=== PATIENT | female | born 1945 | race Caucasian/White ===

== ENCOUNTER 2020-07-21 08:51 | Outpatient (CLI) | payer MEDICARE, SELFPAY ==
--- NOTE | ~2020-07-21 | MM_ITS ---
EXAMINATION: MM screening ani BI w raphael HISTORY: Screening mammogram TECHNIQUE: Craniocaudal and mediolateral oblique 3-D tomosynthesis images were obtained and synthetic 2-D images were generated. CAD analysis was submitted and interpreted. COMPARISON: 10/01/2017, 02/14/2016, 10/07/2014 BREAST PARENCHYMAL COMPOSITION: The breasts are heterogeneously dense, which may obscure small masses .0 FINDINGS: Scattered benign-appearing calcifications are present. There is no evidence of suspicious m ass, calcification, or architectural distortion to suggest malignancy in either breast. There has bee n no suspicious interval change. IMPRESSION: 1. No mammographic evidence of malignancy. 2. Recommend routine screening mammography in one year. BI-RADS Category 2: Benign finding(s). Reviewed, dictated and finalized at location A. [employer]UR[employer] ANALYST
--- NOTE | ~2020-07-21 | DEXA_ITS ---
Bone Density Report Name: Kay Eastman Age: 74 Sex: Female Ethnicity: White Date of : 1945 Indication: osteopenia; height loss; Referring Provider: Elver Partida Study: Bone densitometry was performed. Exam Date: July 21, 2020 Accession number: [id number] Bone Density: Region BMD T-score Z-score Classification AP Spine (L1, L2, L3) 0.894 -1.1 1.2 Osteopenia Femoral Neck (Left) 0.609 -2.2 -0.2 Osteopenia Total Hip (Left) 0.707 -1.9 -0.2 Osteopenia Total Hip Bilateral Avg 0.653 -2.4 -0.7 Osteopenia Femoral Neck (Right) 0.531 -2.9 -0.9 Osteoporosis Total Hip (Right) 0.598 -2.8 -1.1 Osteoporosis World Health Organization criteria for BMD impression classify patients as: Normal (T-score at or above -1.0), Osteopenia (T-score between -1.0 and -2.5), or Osteoporosis (T-score at or below -2.5). 10-year Fracture Risk: FRAX not reported because: Some T-score for Spine Total or Hip Total or Femoral Neck at or below -2.5 Previous Exams: Region Exam Age BMD T-score BMD Change BMD Change Date g/cm2 vs Baseline vs Previous AP Spine(L1, L2, L3) 07/21/2020 74 0.894 -1.1 0.040(4.7%)# -0.053(-5.6%)* 10/01/2017 71 0.948 -0.6 0.093(10.9%)# -0.008(-0.8%) 10/07/2014 68 0.956 -0.6 0.101(11.8%)# 0.012(1.2%)# 03/27/2012 66 0.944 -0.7 0.089(10.5%)# -0.041(-4.2%)# 05/29/2009 63 0.985 -0.3 0.131(15.3%)* 0.052(5.6%)* 01/14/2007 61 0.933 -0.8 0.078(9.2%)* 0.078(9.2%)* 07/05/2004 58 0.854 -1.5 Total Hip(Left) 07/21/2020 74 0.707 -1.9 -0.005(-0.7%)# -0.021(-2.9%) 10/01/2017 71 0.727 -1.8 0.016(2.2%)# -0.050(-6.5%)* 10/07/2014 68 0.778 -1.3 0.066(9.3%)# -0.003(-0.4%)# 03/27/2012 66 0.780 -1.3 0.069(9.7%)# 0.030(4.1%)# 05/29/2009 63 0.750 -1.6 0.038(5.4%)* 0.006(0.8%) 01/14/2007 61 0.744 -1.6 0.032(4.6%)* 0.032(4.6%)* 07/05/2004 58 0.712 -1.9 Total Hip(Right) 07/21/2020 74 0.598 -2.8 -0.042(-6.6%)# -0.076(-11.2%) 10/01/2017 71 0.674 -2.2 0.034(5.3%)# 0.020(3.0%) 10/07/2014 68 0.654 -2.4 0.014(2.1%)# 0.000(0.0%)# 03/27/2012 66 0.654 -2.4 0.014(2.1%)# -0.057(-8.0%)# 05/29/2009 63 0.711 -1.9 0.071(11.0%)* 0.048(7.3%)* 01/14/2007 61 0.663 -2.3 0.022(3.5%) 0.022(3.5%) 07/05/2004 58 0.640 -2.5 *Denotes significance at 95% confidence level, LSC for AP Spine = 0.022 g/cm2, LSC for Total Hip = 0.027 g/cm2 Clinical Information Provided by Patient:
--- NOTE | ~2020-07-21 | CT_ITS ---
EXAMINATION: CT lung screening EXAM DATE: 07/21/2020 09:41 INDICATION: Personal history of nicotine dependence. TECHNIQUE: Spiral low dose CT of the chest without contrast. Axial, coronal and sagittal images were reviewed. The dose-length product (DLP) for this examination was 60.57 mGy-cm. The exposure was ta ilored according to patient size (auto mA exposure control), and iterative reconstruction (ASIR) was used as additional dose reduction technique. Comparison is made to prior examination from 02/26/2017. FINDINGS: There is a 4 mm pleural-based right lower lobe nodule on image 71. Biapical opacities cons istent with scarring. Both of these findings are stable compared to 2017 consistent with postinfectio us residua. Small amount of nodularity along the anterior, nondependent wall of the miguel, largest region measur ing about 3 x 5 mm. This was not present on previous examination. Could be endobronchial debris but e ndobronchial malignancy not excludable. There is no mediastinal, hilar or axillary lymphadenopathy. There are no pleural or pericardial eff usions. There is no pneumothorax. Heart normal in size. There is mild coronary arterial calcifi cation, arterial sclerosis. Mild emphysema and hyperinflation. Upper abdomen is unremarkable. The re is thoracic spondylosis without osteoblastic or osteolytic lesions identified. IMPRESSION: Lung-RADS category 4A, suspicious (5-15 % chance of malignancy); recommend bronchoscopy o r followup LDCT in 3 months. Office is presently closed. I left a message for Dr. Elver Partida MD on 07/21/2020 12:06 VOICE OVER ARTIST. I p rovided my direct number, to discuss findings in this case. Reviewed, dictated and finalized at location B. E OVER ARTIST IMPRESSION: Lung-RADS category 4A, suspicious (5-15 % chance of malignancy); re commend bronchoscopy or followup LDCT in 3 months. Office is presently closed. I left a message for Dr. Elver Partida MD on 06/27 12:06 VOICE OVER ARTIST. I provided my direct number, to discuss findings in this mary e.
== END 2020-07-21 08:52 | disposition home or self-care (01) ==
LOC: ANHIMG 08:53
PROVIDERS: Family Provider Internal Medicine; PCP Family Medicine; Visit Provider Family Medicine
DX: Z12.2 Encounter for screening for malignant neoplasm of respiratory organs (principal); Z87.891 Personal history of nicotine dependence; Z78.0 Asymptomatic menopausal state; Z12.31 Encounter for screening mammogram for malignant neoplasm of breast; R91.8 Other nonspecific abnormal finding of lung field; M85.88 Other specified disorders of bone density and structure, other site; M85.852 Other specified disorders of bone density and structure, left thigh; M85.851 Other specified disorders of bone density and structure, right thigh; M81.0 Age-related osteoporosis without current pathological fracture
CPT/HCPCS: 71271; 77063; 77067; 77080

== ENCOUNTER 2021-02-26 09:58 | Outpatient (CLI) | payer MEDICARE, SELFPAY ==
--- NOTE | ~2021-02-26 | CT_ITS ---
EXAMINATION:CT diagnostic chest wo con DATE: 02/26/2021 10:32 INDICATION: Solitary pulmonary nodule. TECHNIQUE: Computed tomography (CT) of the chest was performed without intravenous contrast. Automate d exposure control and iterative reconstruction technique were employed. The dose-length product (DLP ) was 60.57 mGy-cm. COMPARISON: Chest CT 07/21/2020, 02/26/2017 FINDINGS: There is mild scarring at the lung apices. There is mild atelectasis bilaterally. Again see n is a 5 mm nodule in right lower lobe. There are a few other scattered nodules measuring up to 3 mm. There is no abnormal mass in the trachea or bronchi. No pleural effusion. There is an aberrant right subclavian artery. The heart size is normal. There are coronary artery calcifications. No pericardia l effusion. There is moderate thoracic spondylosis. IMPRESSION: 1. Lung-RADS category 2: Benign appearance or behavior. Continue annual screening with noncontrast lo w-dose chest CT in 12 months. Reviewed, dictated and finalized at location A. IMPRESSION: 1. Lung-RADS category 2: Benign appearance or behavior. Continue annual screeni ng with noncontrast low-dose chest CT in 12 months.
== END 2021-02-26 09:59 | disposition home or self-care (01) ==
PROVIDERS: PCP Family Medicine; Visit Provider Internal Medicine Pulmonary Disease
DX: R91.1 Solitary pulmonary nodule (principal)
CPT/HCPCS: 71250

== ENCOUNTER 2022-10-03 09:47 | Outpatient (CLI) | payer MEDICARE, SELFPAY ==
--- NOTE | ~2022-10-03 | CT_ITS ---
EXAMINATION: CT lung screening DATE: 10/03/2022 10:22 INDICATION: Lung cancer screening TECHNIQUE: Computed tomography (CT) of the chest was performed without intravenous contrast. The dose -length product was 59.29 mGy-cm. Automated exposure control and iterative reconstruction technique w ere employed. COMPARISON: CT dated 06/29/2020 FINDINGS: Heart size normal. No significant pleural or pericardial effusion. No thoracic lymphadenopa thy. There is atherosclerosis of the aorta and coronary arteries. The upper abdomen is unremarkable. There is emphysema. Stable apical pleural thickening/scarring. Stable bilateral pulmonary nodules mignon suring 5 mm or less. Dependent atelectasis. Moderate thoracic spondylosis. Accentuated thoracic kypho sis. There is an aberrant right subclavian artery. IMPRESSION: 1. Lung-RADS category 2: Benign appearance or behavior. Continue annual screening with noncontrast lo w-dose chest CT in 12 months. Reviewed, dictated and finalized at location L. IMPRESSION: 1. Lung-RADS category 2: Benign appearance or behavior. Continue annual screeni ng with noncontrast low-dose chest CT in 12 months.
== END 2022-10-03 09:48 | disposition home or self-care (01) ==
PROVIDERS: PCP Family Medicine; Visit Provider Family Medicine
DX: Z12.2 Encounter for screening for malignant neoplasm of respiratory organs (principal); F17.210 Nicotine dependence, cigarettes, uncomplicated
CPT/HCPCS: 71271

== ENCOUNTER 2022-12-06 08:41 | Outpatient (CLI) | payer MEDICARE, SELFPAY ==
--- NOTE | ~2022-12-06 | DEXA_ITS ---
Bone Density Report Name: CLOTILDE CASANOVA Age: 77 Sex: Female Ethnicity: White Date of : 1945 Indication: postmenopausal osteoporosis; height loss; asthma or emphysema; Referring Provider: ADRIANO REID Study: Bone densitometry was performed. Exam Date: December 06, 2022 Accession number: [id number] Bone Density: Region BMD T-score Z-score Classification AP Spine(L1-L4) 0.973 -0.7 1.8 Normal Femoral Neck (Left) 0.582 -2.4 -0.3 Osteopenia Total Hip (Left) 0.675 -2.2 -0.3 Osteopenia Femoral Neck (Right) 0.507 -3.1 -1.0 Osteoporosis Total Hip (Right) 0.614 -2.7 -0.8 Osteoporosis Total Hip Mean 0.645 -2.5 -0.6 Osteopenia World Health Organization criteria for BMD impression classify patients as: Normal (T-score at or above -1.0), Osteopenia (T-score between -1.0 and -2.5), or Osteoporosis (T-score at or below -2.5). 10-year Fracture Risk: FRAX not reported because: Some T-score for Spine Total or Hip Total or Femoral Neck at or below -2.5 Previous Exams: Region Exam Age BMD T-score BMD Change BMD Change Date g/cm2 vs Baseline vs Previous AP Spine (L1-L4) 12/06/2022 77 0.973 -0.7 -0.012 (-1.2%) -0.032 (-3.2%) 10/01/2017 71 1.005 -0.4 0.020 (2.1%)# 0.017 (1.7%) 10/07/2014 68 0.988 -0.5 0.003 (0.3%)# 0.003 (0.3%)# 03/27/2012 66 0.985 -0.6 Total Hip(Left) 12/06/2022 77 0.675 -2.2 -0.105 (-13.5% -0.031 (-4.4%) 07/21/2020 74 0.707 -1.9 -0.074 (-9.5%) -0.021 (-2.9%) 10/01/2017 71 0.727 -1.8 -0.053 (-6.8%) -0.050 (-6.5%) 10/07/2014 68 0.778 -1.3 -0.003 (-0.4%) -0.003 (-0.4%) 03/27/2012 66 0.780 -1.3 Total Hip(Right) 12/06/2022 77 0.614 -2.7 -0.040 (-6.1%) 0.016 (2.7%) 07/21/2020 74 0.598 -2.8 -0.056 (-8.5%) -0.076 (-11.2% 10/01/2017 71 0.674 -2.2 0.020 (3.1%)# 0.020 (3.0%) 10/07/2014 68 0.654 -2.4 0.000 (0.0%)# 0.000 (0.0%)# 03/27/2012 66 0.654 -2.4 *Denotes significance at 95% confidence level, LSC for AP Spine = 0.022 g/cm2, LSC for Total Hip = 0.027 g/cm2 # Denotes dissimilar scan types or analysis methods Clinical Information Provided by Patient: Smokes Has the following medical conditions: Asthma or Emphysema Patient maximum height was 62 Menopause Age: 51 Drinks caffeinated beverages Onset of menses at age 13 Number of children 4 Impression: The patient has osteoporosis, based on the Right Femoral Neck T-score. The patient has
--- NOTE | ~2022-12-06 | MM_ITS ---
EXAMINATION: MM screening ani BI w raphael HISTORY: Screening mammogram TECHNIQUE: Craniocaudal and mediolateral oblique 3-D tomosynthesis images were obtained and synthetic 2-D images were generated. CAD analysis was submitted and interpreted. COMPARISON: July 21, 2020, October 01, 2017, February 14, 2016 bilateral screening mammogram examinat ions BREAST PARENCHYMAL COMPOSITION: The breasts are heterogeneously dense, which may obscure small masses . FINDINGS: There is no evidence of suspicious mass, calcification, or architectural distortion to sugg est malignancy in either breast. There has been no suspicious interval change. IMPRESSION: 1. No mammographic evidence of malignancy. 2. Recommend routine screening mammography in one year. BI-RADS Category 1: Negative Reviewed, dictated and finalized at location A.
== END 2022-12-06 08:42 | disposition home or self-care (01) ==
LOC: ANHIMG 08:42
PROVIDERS: PCP Family Medicine; Visit Provider Family Medicine
DX: Z12.31 Encounter for screening mammogram for malignant neoplasm of breast (principal); Z78.0 Asymptomatic menopausal state; M85.852 Other specified disorders of bone density and structure, left thigh; M85.851 Other specified disorders of bone density and structure, right thigh; M81.0 Age-related osteoporosis without current pathological fracture
CPT/HCPCS: 77063; 77067; 77080

== ENCOUNTER 2023-10-07 13:35 | Outpatient (CLI) | payer MEDICARE, SELFPAY ==
--- NOTE | ~2023-10-07 | CT_ITS ---
CT Scan of the Chest without Contrast: Clinical Indication: Lung cancer screening, nicotine dependence Technique: Contiguous sections were acquired throughout the chest without intravenous contrast. Dose reduction technique was used on this scan by utilizing automated exposure control and iterative recon struction technique. The dose-length product (DLP) was 63.56 mGy-cm. COMPARISON: 10/03/2022 Findings: There is no evidence of any significant mediastinal, hilar or axillary lymphadenopathy. The mediastin al soft tissues appear normal. There is no evidence of pleural or pericardial effusion. Stable biapical scarring. Stable 2 mm right upper lobe pulmonary nodule. Images through the upper abdomen reveal no abnormalities. Impression: Lung RADS 2: Benign appearance. 12 month follow-up screening CT advised. Reviewed, dictated and finalized at location . Impression: Lung RADS 2: Benign appearance. 12 month follow-up screening CT advised.
== END 2023-10-07 13:36 | disposition home or self-care (01) ==
PROVIDERS: PCP Family Medicine; Visit Provider Family Medicine
DX: Z12.2 Encounter for screening for malignant neoplasm of respiratory organs (principal); Z87.891 Personal history of nicotine dependence
CPT/HCPCS: 71271

== ENCOUNTER 2024-01-08 08:31 | Outpatient (CLI) | payer MEDICARE, SELFPAY ==
--- NOTE | ~2024-01-08 | MM_ITS ---
EXAMINATION: MM screening ani BI w raphael HISTORY: Screening TECHNIQUE: Craniocaudal and mediolateral oblique 3-D tomosynthesis images were obtained and synthetic 2-D images were generated. CAD analysis was submitted and interpreted. COMPARISON: Comparison to multiple prior studies sequentially, with oldest reviewed study dated 07/21. BREAST PARENCHYMAL COMPOSITION: Dense: The breasts are heterogeneously dense, which may obscure small masses FINDINGS: There is no evidence of suspicious mass, calcification, or architectural distortion to sugg est malignancy in either breast. There has been no suspicious interval change. IMPRESSION: 1. No mammographic evidence of malignancy. 2. Recommend routine screening mammography in one year. BI-RADS Category 1: Negative Reviewed, dictated and finalized at location B.
== END 2024-01-08 08:32 | disposition home or self-care (01) ==
LOC: ANHIMG 08:32
PROVIDERS: PCP Family Medicine; Visit Provider Family Medicine
DX: Z12.31 Encounter for screening mammogram for malignant neoplasm of breast (principal)
CPT/HCPCS: 77063; 77067

== ENCOUNTER 2024-11-08 14:24 | Outpatient (CLI) | payer MEDICARE, SELFPAY ==
--- NOTE | ~2024-11-08 | CT_ITS ---
CT Scan of the Chest without Contrast: Clinical Indication: Pulmonary nodule Technique: Contiguous sections were acquired throughout the chest without intravenous contrast. Dose reduction technique was used on this scan by utilizing automated exposure control and iterative recon struction technique. The dose-length product (DLP) was 59.72 mGy-cm. COMPARISON: 10/06/2020 Findings: There is no evidence of any significant mediastinal, hilar or axillary lymphadenopathy. Aberrant righ t subclavian artery noted. Coronary artery calcification are present. There is no evidence of pleural or pericardial effusion. There is mild biapical scarring. Stable 3 mm peripheral right upper lobe nodule (axial image 55). Images through the upper abdomen reveal no abnormalities. Impression: Stable 3 mm right upper lobe nodule. Reviewed, dictated and finalized at location . Impression: Stable 3 mm right upper lobe nodule.
--- OUTSIDE RECORDS SUMMARY | 2024-11-08 15:33 | XMS_ITS | Clinical Summary ---
Author Organization [facility] Address [facility] [place] [address] Care Team Providers Care Oncology Nurse Name Role Phone Elver Partida MD Primary Care Provider Radha Fletcher Unavailable Allergies Active Allergy Reactions Criticality Noted Date Comments Erythromycin Unknown 12/01/2023 Medications rosuvastatin (CRESTOR) 10 mg tablet Take 1 tablet (10 mg total) by mouth daily 11/08/2023 Active buPROPion XL (WELLBUTRIN XL) 300 mg 24 hr tablet Take 1 tablet (300 mg total) by mouth every morning 06/15/2024 Active Active Problems Problem Noted Date Diagnosed Date Brain fog 12/01/2023 Depression 12/01/2023 Long COVID 12/01/2023 Nutritional counseling 12/01/2023 Vaccine counseling 12/01/2023 Disrupted sleep-wake cycle 12/01/2023 Encounters Date Type Department Care Team Description 11/02/2024 Telephone [facility] [address] [place] [address] Geneva Cruz, ELMER 09/27/2024 Results Follow-Up [address] [place] [address] Chely Peraza NP PET/CT Amyloid Brain 09/24/2024 1:38 PM CDT - 09/24/2024 11:59 PM CDT Hospital Encounter [facility] [address] [place] [address] Discharge Disposition: Discharge to home or self care 09/24/2024 1:20 PM CDT - 09/24/2024 11:59 PM CDT Hospital Encounter [facility]) [address] [place] [address] Memory loss Discharge Disposition: Discharge to home or self care 09/02/2024 12:00 PM CDT Office Visit [facility] [address] [place] [address] First Floor [address] [place] [phone] Chely Peraza NP Memory loss (Primary Dx) 08/18/2024 Documentation [facility] [address] [place] [address] First Floor [address] [place] [phone] Kourtney Shen RN 08/13/2024 Results Follow-Up [facility] [address] [place] [address] Advanced Medicine 6th [place] [address] [place] [address] Alisha Brito MD MRI Brain and Volumetric WO Contrast 08/12/2024 12:15 PM CDT - 08/12/2024 11:59 PM CDT Hospital Encounter [facility] [address] [place] [address] Memory loss Discharge Disposition: Discharge to home or self care from Last 3 Months Social History Tobacco Use Types Packs/Day Years Used Date Smoking Tobacco: Never Passive Smoke Exposure: Never Smokeless Tobacco: Never Comments No Sex and Gender Information Value Date Recorded Sex Assigned at Not on file 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 Gender Identity Not on file Sexual Orientation Not on file Obstetrics History Last Filed Vital Signs Vital Sign Reading Time Taken Comments Blood Pressure 122/74 09/02/2024 11:38 AM CDT Pulse 84 09/02/2024 11:38 AM CDT Temperature 36.4 C (97.5 F) 09/02/2024 11:38 AM CDT Respiratory Rate 18 12/01/2023 10:48 AM CDT Oxygen Saturation 98% 12/01/2023 10:48 AM CDT Inhaled Oxygen Concentration - - Weight 48.7 kg (107 lb 6.4 oz) 09/02/2024 11:38 AM CDT Height 157 cm (5' 1.81) 09/02/2024 11:38 AM CDT Body Mass Index 19.76 09/02/2024 11:38 AM CDT Plan of Treatment Health Maintenance Due Date Last Done Comments Depression Screening 1945 Fall Risk Assessment 1945 Hepatitis C Screening 1945 Osteoporosis Screening-Bone Density Scan 1945 DTaP/Tdap/Td Vaccine (1 - Tdap) 1957 Hepatitis B Screening 1964 Pneumococcal vaccine 65+ (1 of 1 - PCV) 1996 Zoster Vaccine (1 of 2) 1996 Well Visit 65+ 10/28/2011 Influenza Vaccine (Season Ended) 2025 Procedures Procedure Name Priority Date/Time Associated Diagnosis Comments PET/CT AMYLOID BRAIN Schedule Routine, Read Routine (OP Routine) 09/24/2024 3:16 PM CDT Memory loss MRI BRAIN AND VOLUMETRIC WO CONTRAST Schedule Routine, Read Routine (OP Routine) 08/12/2024 1:23 PM CDT Memory loss from Last 3 Months Results * PET/CT Amyloid Brain (09/24/2024 3:16 PM CDT) Anatomical Region Laterality Modality Positron Emissio n Tomography (PET) 09/24/2024 3:39 PM CDT Impressions 09/26/2024 10:43 AM CDT Positive amyloid-PET study, 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 General comments on amyloid-PET interpretation: A negative amyloid-PET study indicates sparse to no neuritic plaques and is inconsistent with Alzheimer disease at the time of the study. A negative study reduces the likelihood that the patient's cognitive impairment is due to Alzheimer disease. A positive amyloid-PET study indicates moderate to frequent neuritic plaques which is the amount present in patients with Alzheimer disease. However, a positive amyloid-PET study does not establish the diagnosis of Alzheimer disease. Moderate to frequent neuritic plaques can also be present in patients with other neurological conditions as well as in older people with normal cognition. Dictated by: Shonna Gong MD The radiology attending physician has personally reviewed this study, and had reviewed and/or edited this written report and agrees with it. Electronically signed by: Nancy Kenny MD, Ph.D Narrative 09/26/2024 10:43 AM CDT EXAMINATION: BRAIN AMYLOID-PET/CT IMAGING DATE OF STUDY: 09/24/2024 SCANNER: [employer] mCT RADIOPHARMACEUTICAL: 11.65 mCi F-18 florbetapir i.v. HISTORY: 78-year-old woman with one year of progressive cognitive decline undergoing evaluation for cognitive impairment . TECHNIQUE: At 30 minutes after injection of tracer, non-contrast CT images of the head were obtained for attenuation correction and for fusion with emission PET images to allow for anatomical localization of PET findings. Standard emission PET imaging of the brain was then performed. The study was interpreted on the [employer] workstation. COMPARISON CT/MRI: Brain MRI 08/12/2024 FINDINGS: There is normal cortical-white matter contrast in the cerebellum. There is decreased cortical-white matter contrast involving the frontal, temporal lobes, cingulate gyrus and precuneus. Incidental CT findings: None. Procedure Note Nancy Dillard MD PhD - 09/26/2024 EXAMINATION: BRAIN AMYLOID-PET/CT IMAGING DATE OF STUDY: 09/24/2024 SCANNER: [facility] N mCT RADIOPHARMACEUTICAL: 11.65 mCi F-18 florbetapir i.v. HISTORY: 78-year-old woman with one year of progressive cognitive decline undergoing evaluation for cognitive impairment . TECHNIQUE: At 30 minutes after injection of tracer, non-contrast CT images of the head were obtained for attenuation correction and for fusion with emission PET images to allow for anatomical localization of PET findings. Standard emission PET imaging of the brain was then performed. The study was interpreted on the [employer] workstation. COMPARISON CT/MRI: Brain MRI 08/12/2024 FINDINGS: There is normal cortical-white matter contrast in the cerebellum. There is decreased cortical-white matter contrast involving the frontal, temporal lobes, cingulate gyrus and precuneus. Incidental CT findings: None. 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 General comments on amyloid-PET interpretation: A negative amyloid-PET study indicates sparse to no neuritic plaques and is inconsistent with Alzheimer disease at the time of the study. A negative study reduces the likelihood that the patient's cognitive impairment is due to Alzheimer disease. A positive amyloid-PET study indicates moderate to frequent neuritic plaques which is the amount present in patients with Alzheimer disease. However, a positive amyloid-PET study does not establish the diagnosis of Alzheimer disease. Moderate to frequent neuritic plaques can also be present in patients with other neurological conditions as well as in older people with normal cognition. Dictated by: Shonna Gong MD The radiology attending physician has personally reviewed this study, and had reviewed and/or edited this written report and agrees with it. Electronically signed by: Nancy Kenny MD, Ph.D Chely Donovanderek NOLEN IMG PET PROCEDURES Fi nal Result * MRI Brain and Volumetric WO Contrast (08/12/2024 1:23 PM CDT) Anatomical Region Laterality Modality Head and Neck N/A Magnetic Resonan ce 08/13/2024 8:34 AM CDT Addenda Addendum by Kain Barr MD on 08/18/2024 10:01 AM CDT 3-D images were created on the scanner as part of this examination. Edited by: Austen Neumann Electronically signed by: Kain Barr M.D. Impressions 08/13/2024 8:34 AM CDT Overall, the pattern of atrophy is nonspecific. 1. Findings suggest mild atrophy and small vessel disease with normal hippocampal volumes. 2. No microhemorrhages or hemosiderosis seen. Electronically signed by: Kain Barr M.D. Narrative 08/13/2024 8:34 AM CDT EXAMINATION: Magnetic resonance imaging (MRI) of the brain and brainstem without contrast HISTORY: 78-year-old woman memory loss no time schedule provided, history of Covid TECHNIQUE: Multiplanar multi-weighted MRI of the brain and brainstem was performed without intravenous contrast using a protocol specific to assess patients with memory complaints. T1-weighted sagittal MPRage images of the brain were postprocessed on [employer] to generate segmented brain volumes using commercial software. Results were compared to 10th and 90th percentiles of healthy age-/gender-matched population. Graphs were sent to [facility] and [employer] PACS. The protocol specifically includes FLAIR to assess for potential infarcts and white matter lesions associated with vascular cognitive impairment and with susceptibility sensitive sequences for detection of cerebral microhemorrhages. COMPARISON: None Available. FINDINGS: The scalp and calvarium are normal. The superior sagittal sinus demonstrates normal venous flow. The corpus callosum is normal in shape and signal intensity. The posterior fossa is unremarkable. The pituitary and sella are normal. The brainstem and craniocervical junction are unremarkable. Diffusion weighted images reveal no hyperintensities to suggest acute cerebral infarction. The susceptibility weighted sequences reveal no evidence of acute or chronic hemorrhage. Mild prominence of the ventricles and sulci. The paranasal sinuses are normal. The visualized portions of the mastoids are unremarkable. The orbits appear normal. Normal flow voids are demonstrated in the carotid arteries and basilar artery. QUANTITATIVE ASSESSMENT: Assessment of hippocampal volumes: Quantitative assessment was performed using [employer] and is reported. Hippocampal volumes: Left side: Absolute volume 2.7 mL, normalized to 0.21%, normal range 0.19-0.25%. Right side: Absolute volume 2.9 MLO, normalized to 0.22%, normal range 0.19-0.25%. QUALITATIVE ASSESSMENT: Small infarcts (< 10 mm): . 0 Infarcts (>10 mm): . A White matter hyperintensities (Fazekas grade): . Multiple and numerous Prior cerebral microhemorrhages: . 0 New/incident cerebral microhemorrhages: . 0 Total cerebral microhemorrhages: . 0 Prior siderosis: There is no prior area of siderosis. 0 New/incident siderosis: None. 0 Procedure Note Kain Barr MD - 08/13/2024 EXAMINATION: Magnetic resonance imaging (MRI) of the brain and brainstem without contrast HISTORY: 78-year-old woman memory loss no time schedule provided, history of Covid TECHNIQUE: Multiplanar multi-weighted MRI of the brain and brainstem was performed without intravenous contrast using a protocol specific to assess patients with memory complaints. T1-weighted sagittal MPRage images of the brain were postprocessed on [employer] to generate segmented brain volumes using commercial software. Results were compared to 10th and 90th percentiles of healthy age-/gender-matched population. Graphs were sent to [employer] and [employer] PACS. The protocol specifically includes FLAIR to assess for potential infarcts and white matter lesions associated with vascular cognitive impairment and with susceptibility sensitive sequences for detection of cerebral microhemorrhages. COMPARISON: None Available. FINDINGS: The scalp and calvarium are normal. The superior sagittal sinus demonstrates normal venous flow. The corpus callosum is normal in shape and signal intensity. The posterior fossa is unremarkable. The pituitary and sella are normal. The brainstem and craniocervical junction are unremarkable. Diffusion weighted images reveal no hyperintensities to suggest acute cerebral infarction. The susceptibility weighted sequences reveal no evidence of acute or chronic hemorrhage. Mild prominence of the ventricles and sulci. The paranasal sinuses are normal. The visualized portions of the mastoids are unremarkable. The orbits appear normal. Normal flow voids are demonstrated in the carotid arteries and basilar artery. QUANTITATIVE ASSESSMENT: Assessment of hippocampal volumes: Quantitative assessment was performed using [employer] and is reported. Hippocampal volumes: Left side: Absolute volume 2.7 mL, normalized to 0.21%, normal range 0.19-0.25%. Right side: Absolute volume 2.9 MLO, normalized to 0.22%, normal range 0.19-0.25%. QUALITATIVE ASSESSMENT: Small infarcts (< 10 mm): . 0 Infarcts (>10 mm): . A White matter hyperintensities (Fazekas grade): . Multiple and numerous Prior cerebral microhemorrhages: . 0 New/incident cerebral microhemorrhages: . 0 Total cerebral microhemorrhages: . 0 Prior siderosis: There is no prior area of siderosis. 0 New/incident siderosis: None. 0 IMPRESSION: Overall, the pattern of atrophy is nonspecific. 1. Findings suggest mild atrophy and small vessel disease with normal hippocampal volumes. 2. No microhemorrhages or hemosiderosis seen. Electronically signed by: Kain Barr M.D. Alisha Brito MD IMG MRI PROCEDURES Edited Resul t - Final from Last 3 Months Insurance [employer] MEDICARE Care Teams Oncology Nurse Relationship Specialty Start Date End Date Elver Partida MD [address] [facility] [address] [place] [address] PCP - General Family Medicine 11/21/23 Radha Fletcher SLP [address] [facility] [address] [place] [address] Speech Language Pathologist Speech Therapy 12/26/23 Shonna Barrera, [facility] [address] [place] [address] Agriculture Extension Specialist Infectious Diseases 12/01/23
--- OUTSIDE RECORDS SUMMARY | 2024-11-08 15:33 | XMS_ITS | Encounter Summary ---
Author Organization [facility] Address [address] [place] [address] Phone Care Team Providers Care Pumper Gager Name Role Phone Elver Partida MD Primary Care Provider Radha Fletcher Unavailable Encounter Details Date Type Department Care Team (Late st Contact Info) Description 09/27/2024 Results Follow-Up [facility] [place] [address] 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 However, she would like to limit her trips to [place]. The plan is for her to complete at home genetic testing for APOE type first and then schedule in [facility] clinic. documented in this encounter Plan of Treatment Not on file documented as of this encounter Visit Diagnoses Not on filedocumented in this encounter Care Teams Pumper Gager Relationship Specialty Start Date End Date Elver Partida MD [address] [place] [address] PCP - General Family Medicine 11/21/23 Radha Fletcher SLP [address] [place] [address] Speech Language Pathologist Speech Therapy 12/26/23 Shonna Barrera, [address] [address] Exhaust Tender Infectious Diseases 12/01/23 documented as of this encounter
--- OUTSIDE RECORDS SUMMARY | 2024-11-08 15:33 | XMS_ITS | Referral Summary ---
Author Organization [facility] Address [address] [place] [address] Care Team Providers Care Advertising Clerk Name Role Phone Elver Partida MD Primary Care Provider Radha Fletcher Unavailable Encounters Date Type Department Care Team Description 11/02/2024 Telephone [facility] [address] [place] [address] Geneva Cruz, Kellen 09/27/2024 Results Follow-Up [address] [place] [address] Chely Peraza NP PET/CT Amyloid Brain 09/24/2024 1:38 PM CDT - 09/24/2024 11:59 PM CDT Hospital Encounter [facility] [address] [place] [address] Discharge Disposition: Discharge to home or self care 09/24/2024 1:20 PM CDT - 09/24/2024 11:59 PM CDT Hospital Encounter [facility]) [address] [place] [address] Memory loss Discharge Disposition: Discharge to home or self care 09/02/2024 12:00 PM CDT Office Visit [facility] [address] [place] [address] Chely Peraza NP Memory loss (Primary Dx) 08/18/2024 Documentation [facility] [address] [facility] First Floor [address] [place] [address] Kourtney Shen RN 08/13/2024 Results Follow-Up [facility] [place] [address] [facility] Advanced Medicine 6th [place] [address] [place] [phone] Alisha Brito MD MRI Brain and Volumetric WO Contrast 08/12/2024 12:15 PM CDT - 08/12/2024 11:59 PM CDT Hospital Encounter 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 The study was interpreted on the [employer] workstation. COMPARISON CT/MRI: Brain MRI 08/12/2024 FINDINGS: There is normal cortical-white matter contrast in the cerebellum. There is decreased cortical-white matter contrast involving the frontal, temporal lobes, cingulate gyrus and precuneus. Incidental CT findings: None. Procedure Note Nancy Dillard MD PhD - 09/26/2024 EXAMINATION: BRAIN AMYLOID-PET/CT IMAGING DATE OF STUDY: 09/24/2024 SCANNER: [facility] mCT RADIOPHARMACEUTICAL: 11.65 mCi F-18 florbetapir i.v. [...] performed. The study was interpreted on the [employer] workstation. COMPARISON CT/MRI: Brain MRI 08/12/2024 FINDINGS: [...] signed by: Nancy Kenny MD, Ph.D Chely Peraza [facility] IMG PET PROCEDURES Fi nal Result * [...] images of the brain were postprocessed on [employer] to generate segmented brain volumes using commercial software. Results were compared to 10th and 90th percentiles of healthy age-/gender-matched population. Graphs were sent to [employer] and [employer] PACS. The protocol specifically includes FLAIR to [...] hippocampal volumes: Quantitative assessment was performed using [employer] and is reported. Hippocampal volumes: Left side: [...] images of the brain were postprocessed on [employer] to generate segmented brain volumes using commercial software. Results were compared to 10th and 90th percentiles of healthy age-/gender-matched population. Graphs were sent to [employer] and [employer] [facility] PACS. The protocol specifically includes FLAIR to [...] - Final from Last 3 Months Insurance [facility] MEDICARE [facility] MEDIC[facility] Address: [facility] [id number] [place] [phone] AETNA MEDICARE AETNA MEDICARE Care Teams Advertising Clerk Relationship Specialty Start Date End Date Elver Partida MD [address] [place] [address] PCP - General Family Medicine 11/21/23 Radha Fletcher SLP [address] [place] [address] Speech Language Pathologist Speech Therapy 12/26/23 Shonna Barrera [address] [address] Exhibit Artist Infectious Diseases 12/01/23
== END 2024-11-08 14:25 | disposition home or self-care (01) ==
PROVIDERS: PCP Family Medicine; Visit Provider Physician Assistant
DX: R91.1 Solitary pulmonary nodule (principal)
CPT/HCPCS: 71250

== ENCOUNTER 2025-03-02 10:34 | Outpatient (CLI) | payer MEDICARE, SELFPAY ==
--- NOTE | ~2025-03-02 | MM_ITS ---
EXAMINATION: MM screening ani BI w raphael HISTORY: Screening TECHNIQUE: Craniocaudal and mediolateral oblique 3-D tomosynthesis images were obtained and synthetic 2-D images were generated. CAD analysis was submitted and interpreted. COMPARISON: Comparison to multiple prior studies sequentially, with oldest reviewed study dated , 02/14/2016 BREAST PARENCHYMAL COMPOSITION: The breasts are heterogeneously dense, which may obscure small masses. FINDINGS: There is no evidence of suspicious mass, calcification, or architectural distortion to suggest malignancy in either breast. IMPRESSION: 1. No mammographic evidence of malignancy. 2. Recommend routine screening mammography in one year. BI-RADS Category 1: Negative Reviewed, dictated and finalized at location B.
== END 2025-03-02 10:35 | disposition home or self-care (01) ==
LOC: ANHFOHIMG 10:35
PROVIDERS: PCP Family Medicine; Visit Provider Family Medicine
DX: Z12.31 Encounter for screening mammogram for malignant neoplasm of breast (principal)
CPT/HCPCS: 77063; 77067